=== PATIENT | female | born 1960 | race Caucasian/White ===

== ENCOUNTER 2018-06-24 01:26 | Emergency (ER) | payer MEDICARE ==
[~2018-06-24] VITALS: Ht 165.1 cm; Wt 76.4 kg
[~2018-06-24 01:26] MED LIST: BAYER CHEWABLE81 MG PO; ELAVIL25 MG PO; FLEXERIL10 MG PO; FOLIC ACID1 MG PO; HYDROCHLOROTHIA25 MG PO; LYRICA75 MG PO; NITROSTAT0.4 MG SL; PLAVIX75 MG PO; PROVENTIL/2.5 MG/3 M NEB; PROZAC20 MG PO; TRIGLIDE160 MG PO; VERELAN120 MG PO; VICOPROFEN 7.5/1 TAB PO
[2018-06-24 01:30] VITALS: Ht 165.1 cm; Wt 76.4 kg
[2018-06-24] MEDS ORDERED: DILAUDID8 MG (01:33)
[2018-06-24 02:03] LABS: BASOPHILS 0.3 % (0-2); EOSINOPHILS 1.8 % (0-7); HEMATOCRIT 42.8 % (36.0-48.0); IMMATURE GRANULOCYTES 0.3 % (0-5); LYMPHOCYTES 35.6 % (15-50); MCH 31.2 pg (26.0-34.0); MEAN PLATELET VOLUME 10.4 fL (7.4-10.4); MONOCYTES 8.4 % (2-11); NEUTROPHILS 53.6 % (40-80); PLATELET COUNT 198 10x3/uL (130-400); RBC 4.81 10x6/uL (4.00-5.40); RDW 12.9 % (11.5-14.5); WBC 7.8 10x3/uL (4.8-10.8)
[2018-06-24 02:15] LABS: ALBUMIN 3.6 g/dL (3.4-5.0); BILIRUBIN - TOTAL 0.69 mg/dL (0.2-1.3); CALCIUM 8.4 mg/dL (8.5-10.1); CARBON DIOXIDE 23.1 mmol/L (21.0-32.0); CREATININE - SERUM 0.9 mg/dL (0.6-1.3); POTASSIUM - SERUM 3.1 mmol/L (3.5-5.1); PROTEIN - SERUM 7.9 g/dL (6.4-8.2)
[2018-06-24] MEDS ORDERED: LEVSIN/ANASP0.125 MG PO (04:04)
[2018-06-24 04:22] VITALS: BP 110/70
== END 2018-06-24 04:22 | disposition home or self-care (01) ==
LOC: D.ER 01:26
PROVIDERS: Family Medicine
DX: R10.11 Right upper quadrant pain (principal); F11.90 Opioid use, unspecified, uncomplicated; E87.6 Hypokalemia; B19.20 Unspecified viral hepatitis C without hepatic coma; I25.10 Atherosclerotic heart disease of native coronary artery without angina pectoris

== ENCOUNTER 2018-09-23 19:36 | Emergency (ER) | payer MEDICARE, MEDICAID ==
[~2018-09-23] VITALS: Ht 165.1 cm; Wt 72.7 kg
[~2018-09-23 19:36] MED LIST changes: +DILAUDID8 MG; +LEVSIN/ANASP0.125 MG PO
[2018-09-23 19:42] VITALS: Ht 165.1 cm; Wt 72.7 kg
[2018-09-23] MEDS ORDERED: NORCO 7.5/325 T1 TA1 PO (21:03)
[2018-09-23 21:28] VITALS: BP 150/77
== END 2018-09-23 21:25 | disposition home or self-care (01) ==
LOC: D.ER 19:36
DX: S93.402A Sprain of unspecified ligament of left ankle, initial encounter (principal); X58.XXXA Exposure to other specified factors, initial encounter; Y93.89 Activity, other specified; Y92.019 Unspecified place in single-family (private) house as the place of occurrence of the external cause; F17.200 Nicotine dependence, unspecified, uncomplicated

== ENCOUNTER 2019-08-10 01:24 | Emergency (ER) | payer MEDICARE, MEDICAID ==
[~2019-08-10] VITALS: Ht 165.1 cm; Wt 80.0 kg
[~2019-08-10 01:24] MED LIST changes: +NORCO 7.5/325 T1 TA1 PO
[2019-08-10 01:34] VITALS: Ht 165.1 cm; Wt 80.0 kg
[2019-08-10] MEDS ORDERED: PREDNISONE20 MG PO (02:06)
[2019-08-10 02:14] VITALS: BP 166/99
== END 2019-08-10 02:15 | disposition home or self-care (01) ==
LOC: D.ER 01:24
DX: S39.012A Strain of muscle, fascia and tendon of lower back, initial encounter (principal); X50.0XXA Overexertion from strenuous movement or load, initial encounter; J44.9 Chronic obstructive pulmonary disease, unspecified; I10 Essential (primary) hypertension; F17.210 Nicotine dependence, cigarettes, uncomplicated

== ENCOUNTER 2020-04-08 11:45 | Emergency (ER) | payer MEDICARE, MEDICAID ==
[~2020-04-08] VITALS: Ht 165.1 cm; Wt 76.4 kg
[~2020-04-08 11:45] MED LIST changes: +PREDNISONE20 MG PO
[2020-04-08 11:54] VITALS: Ht 165.1 cm; Wt 76.4 kg
[2020-04-08 12:24] LABS: BASOPHILS 0.7 % (0-2); EOSINOPHILS 5.5 % (0-7); HEMATOCRIT 45.7 % (36.0-48.0); HEMOGLOBIN 15.5 g/dL (12-16); IMMATURE GRANULOCYTES 0.3 % (0-5); LYMPHOCYTES 44.7 % (15-50); MCH 30.6 pg (26.0-34.0); MCHC 33.9 g/dL (31.0-37.0); MCV 90.3 fL (80.0-100.0); MEAN PLATELET VOLUME 10.7 fL (7.4-10.4); MONOCYTES 7.9 % (2-11); NEUTROPHILS 40.9 % (40-80); RBC 5.06 10x6/uL (4.00-5.40); RDW 12.3 % (11.5-14.5)
[2020-04-08 12:38] LABS: PLATELET COUNT 239 10x3/uL (130-400)
[2020-04-08 12:42] LABS: INR 0.93 (0.85-1.17); PROTIME 12.4 SECONDS (11.6-15.0)
[2020-04-08 12:43] LABS: APTT 26.6 SECONDS (22.8-39.4)
[2020-04-08 12:47] LABS: CALC OSMOLALITY 287 mosm/kg (275-300); CARBON DIOXIDE 29.2 mmol/L (21.0-32.0); CHLORIDE - SERUM 104 mmol/L (98-107); CREATININE - SERUM 0.8 mg/dL (0.6-1.3); POTASSIUM - SERUM 4.1 mmol/L (3.5-5.1); SODIUM 142 mmol/L (136-145); UREA NITROGEN 14 mg/dL (7-18); eGFR NON AFRICAN AMERICAN 77 mL/min (90-120)
[2020-04-08 12:48] LABS: GLUCOSE 174 mg/dL (74-106)
[2020-04-08 13:04] LABS: ALBUMIN 3.4 g/dL (3.4-5.0); ALKALINE PHOSPHATASE 80 U/L (30-120); ALT (SGPT) 60 U/L (10-68); CKMB 0.7 U/L (0.0-3.6); CREATINE KINASE 55 UL (21-215); PROTEIN - SERUM 7.2 g/dL (6.4-8.2); TROPONIN-I < 0.017 ng/mL (0.000-0.060)
[2020-04-08] MEDS ORDERED: CYCLOBENZAPRINE10 MG PO (13:19)
[2020-04-08] MEDS ORDERED: MEDROL DOSE PACK4 MG PO (13:19)
[2020-04-08 14:45] VITALS: BP 163/90
== END 2020-04-08 14:46 | disposition home or self-care (01) ==
LOC: D.ER 11:45
PROVIDERS: Family Medicine
DX: M25.512 Pain in left shoulder (principal); M13.812 Other specified arthritis, left shoulder; Z76.0 Encounter for issue of repeat prescription; I10 Essential (primary) hypertension; J44.9 Chronic obstructive pulmonary disease, unspecified